=== PATIENT | male | born 1945 | race Caucasian/White ===

== ENCOUNTER 2020-01-20 15:34 | Emergency (ER) | payer MEDICARE, OTHER, SELFPAY ==
[2020-01-20 15:50] VITALS: BP 125/96; PULSE 82; RESP 21; TEMP 37; O2SAT 97
--- NOTE | 2020-01-20 16:07 | ED.WOUNDLAC ---
HPI - Wound/Laceration General Chief Complaint: Wound/Laceration Stated Complaint: right ring finger (old lac) Time Seen by Provider: 01/20/20 16:00 Source: patient Mode of arrival: ambulatory Limitations: no limitations History of Present Illness HPI narrative: Hunter Art is a 74 yo male, with a PMH of [place], diabetes, neuropathy, MRSA, viral encephaloapathy, exposure to angent orange, malaria, who came here to re-evaluate the injury to L 4th finger 1 month ago. He was using a razor blade and has an avulsion injury of the tip of his finger. He is currently on doxycycline lifelong, his nurse companion looked at the injury about 2 weeks ago given different antibiotics so it has been treated. Finger is tender when is pressure is applied to tip Related Data Home Medications Medication Instructions Recorded Confirmed allopurinol 100 mg tablet 200 mg PO DAILY tablet 08/27/19 01/20/20 apixaban 5 mg tablet 5 mg PO BID 08/27/19 01/20/20 carvedilol 6.25 mg tablet 6.25 mg PO Q12H 08/27/19 01/20/20 ferrous fumarate 325 mg (106 mg 325 mg PO DAILY 08/27/19 01/20/20 iron) tablet finasteride 5 mg tablet 5 mg PO DAILY 08/27/19 01/20/20 furosemide 40 mg tablet 40 mg PO DAILY 08/27/19 01/20/20 hydralazine 10 mg tablet 10 mg PO TID 08/27/19 01/20/20 insulin lispro 100 unit/mL 1 sliding scale dose SUB-Q 08/27/19 01/20/20 subcutaneous cartridge USEASDIRECTD montelukast 10 mg tablet 10 mg PO DAILY 08/27/19 01/20/20 nitroglycerin 0.4 mg sublingual 0.4 mg SUBLINGUAL Q5M PRN 08/27/19 01/20/20 tablet spironolactone 25 mg tablet 25 mg PO DAILY 08/27/19 01/20/20 Allergies Allergy/AdvReac Type Severity Reaction Status Date / Time eszopiclone Allergy Unknown Unknown Verified 09/03/19 08:40 oxycodone Allergy Unknown Unknown Verified 09/03/19 08:40 vancomycin Allergy Unknown Unknown Verified 09/03/19 08:40 zolpidem Allergy Unknown Unknown Verified 09/03/19 08:40 [place] Allergy Mild NASAL SX. Uncoded 09/03/19 08:40 [place] Allergy Mild NASAL SX. Uncoded 09/03/19 08:40 Review of Systems Review of Systems: Narrative: CONSTITUTIONAL: Denies fever, chills, sweats. EYES: Denies visual changes, redness, discharge. ENT: Denies rhinorrhea, congestion, sore throat, otalgia. CARDIOVASCULAR: Denies chest pain, palpitations, edema. RESPIRATORY: Denies dyspnea, wheezing, cough GASTROINTESTINAL: Denies abdominal pain, nausea, vomiting, diarrhea. GENITOURINARY: Denies dysuria, hematuria, abnormal discharge SKIN: Denies rash or itching. Partially healed avulsion injury to the left fourth finger NEUROLOGIC: Denies numbness, or focal weakness. PSYCHIATRIC: Denies anxiety or depression. [facility] Family History Family History Sibling No family history of malignant neoplasm No family history of diabetes mellitus Father No family history of cardiovascular disease No family history of diabetes mellitus Mother No family history of hypertension Social History Social History Smoking status: Never smoker Alcohol intake: never Comments At time of signature, I agree with nursing past medical, surgical, social and family history. There is no relevant family history pertinent to the presenting complaint. Exam Narrative: Exam Narrative: GENERAL: This is a well-nourished, well-developed patient, in mild distress. HEAD: normocephalic, atraumatic. EYES: Sclera clear/white. Vision is grossly intact. EARS: External ears normal, Hearing grossly intact. NOSE: External nose normal without nasal discharge, nares without redness, no rhinorrhea. THROAT: Mucous membranes moist, posterior pharynx NECK: Neck supple, non-tender CARDIOVASCULAR: Regular rate and rhythm without murmurs, gallops, or rubs. RESPIRATORY: Clear to auscultation. Breath sounds equal bilaterally. No wheezes, rales, or rhonchi. GASTROINTESTINAL: Abdomen soft, non-tender, SKIN: warm, intact w
== END 2020-01-20 16:23 | disposition home or self-care (01) ==
PROVIDERS: Emergency Provider Nurse Practitioner; PCP Internal Medicine
DX: S61.205A Unspecified open wound of left ring finger without damage to nail, initial encounter (principal); I25.2 Old myocardial infarction; Z86.14 Personal history of Methicillin resistant Staphylococcus aureus infection; E11.40 Type 2 diabetes mellitus with diabetic neuropathy, unspecified; Z79.4 Long term (current) use of insulin; Z79.01 Long term (current) use of anticoagulants; W27.8XXA Contact with other nonpowered hand tool, initial encounter
CPT/HCPCS: 99212; G0463

== ENCOUNTER 2020-07-16 09:38 | Emergency (ER) | payer MEDICARE, OTHER, SELFPAY ==
--- NOTE | 2020-07-16 09:51 | ED.SOB ---
HPI - SOB/Dyspnea General Chief Complaint: Chest Pain Stated Complaint: Chest pain Source: patient and RN notes reviewed Mode of arrival: ambulatory Limitations: no limitations Related Data Home Medications Medication Instructions Recorded Confirmed insulin lispro 100 unit/mL 1 sliding scale dose SUB-Q 08/27/19 07/01/20 subcutaneous cartridge USEASDIRECTD montelukast 10 mg tablet 10 mg PO DAILY 08/27/19 07/01/20 amlodipine 10 mg tablet 10 mg PO DAILY 06/29/20 07/01/20 tacrolimus 0.5 mg capsule 0.5 mg PO ONCE cap 06/29/20 07/01/20 apixaban 5 mg tablet 2.5 mg PO BID tablet 07/01/20 07/01/20 carvedilol 12.5 mg tablet 37.5 mg PO Q12H tablet 07/14/20 tacrolimus 0.5 mg capsule PO 07/14/20 Allergies Allergy/AdvReac Type Severity Reaction Status Date / Time zolpidem Allergy Unknown Hallucinati Verified 07/01/20 09:46 ng Dust Allergy Mild NASAL SX. Uncoded 07/01/20 09:46 [place] Allergy Mild NASAL SX. Uncoded 07/01/20 09:46 Review of Systems Review of Systems: Narrative: CONSTITUTIONAL: Denies malaise, chills, sweats, or fever. EYES: Denies visual changes, redness, or discharge. ENT: Denies rhinorrhea, congestion, sinus pain, otalgia or sore throat. CARDIOVASCULAR: Denies chest pain, palpitations, or edema. RESPIRATORY: Denies cough or dyspnea. GASTROINTESTINAL: Denies abdominal pain, nausea, vomiting, diarrhea, bloody, or mucous stools. GENITOURINARY: Denies dysuria or hematuria. SKIN: Denies rash or itching. MUSCULOSKELETAL: Denies back pain, joint pain, or myalgia. NEUROLOGIC: Denies numbness, weakness, or headache. PSYCHIATRIC: Denies anxiety or depression. All systems reviewed & are unremarkable except as noted in HPI and below PMFSH Past Medical History Medical History (Updated 07/01/20 @ 10:19 by MATTY Molina) Acute kidney injury Amputation of right ring finger DKA (diabetic ketoacidoses) Weakness Family History Family History Sibling No family history of malignant neoplasm No family history of diabetes mellitus Father No family history of cardiovascular disease No family history of diabetes mellitus Mother No family history of hypertension Social History Social History Smoking status: Never smoker Alcohol intake: never Comments At time of signature, agree with nursing past medical, surgical, social and family history. There is no relevant family history pertinent to the presenting complaint Exam Narrative: Exam Narrative: GENERAL: Well-appearing, well-nourished, and in no acute distress. HEAD: Normocephalic, atraumatic. EYES: PERRLA, conjunctivae clear, and EOMI. No nystagmus. ENT: Nares clear, turbinates pink, no rhinorrhea or epistaxis. Mucous membranes moist. TM pearly vieira with sharp light reflex bilaterally; no tragal tenderness. Oropharynx without erythema or lesions. Tonsils not enlarged and without exudate. NECK: Supple. No lymphadenopathy. No jugular venous distension, thyromegaly, or carotid bruits. Carotids were easily palpable bilaterally. CHEST: No respiratory distress. Clear to auscultation. No bony deformities, no asymmetry. Speaks in full sentences. HEART: Regular rate and rhythm. No murmur heard. Normal peripheral pulses. ABDOMEN: Soft, nontender, nondistended, normal active bowel sounds, no palpable masses. EXTREMITIES: Normal range of motion. No edema. Normal strength and sensation. SKIN: Warm, dry, no rash. NEURO: Alert and oriented x3. No focal deficits. Cranial nerves II through XII grossly intact PSYCH: Normal mood and affect Course Course Emergency Course: Patient is aware of diagnosis, understands and agrees to treatment plan. Anticipatory guidance given. Patient agrees to follow-up as directed and is aware of reasons to seek care at the emergency department. Portions of this record may have been created with voice recognition software V
[2020-07-16 09:55] VITALS: BP 121/71; PULSE 74; RESP 20; TEMP 36.5; O2SAT 97
--- NOTE | 2020-07-16 10:22 | PC.NURSE ---
Dr Brink office called. will fax order over for CXR, pt is not needed to be seen unless he prefers to be seen. pt does not.
== END 2020-07-16 10:32 | disposition left against medical advice (07) ==
LOC: EXPBETH 09:52
PROVIDERS: Emergency Provider Nurse Practitioner; PCP Internal Medicine
DX: Z53.21 Procedure and treatment not carried out due to patient leaving prior to being seen by health care provider (principal)
CPT/HCPCS: 99199

== ENCOUNTER → 2020-07-16 10:45 | Outpatient (CLI) | payer MEDICARE, OTHER, SELFPAY ==
--- NOTE | ~2020-07-16 | XR_ITS ---
XR chest 2V DATE: 07/16/2020 11:01 INDICATION: Chest pain, right-sided. Shortness of breath. TECHNIQUE: 2 views COMPARISON: 08/21/2017 portable AP chest FINDINGS: There are pedicle screws and rods of the thoracic spine and a prosthetic spacer device at T 7-8 area. Diffuse osteopenia. Status post sternotomy/coronary artery bypass graft surgery. Borderline or mild cardiomegaly. There is pulmonary vascular redistribution which may indicate mild p ulmonary venous hypertension. Small pleural effusions, right greater than left. Pseudotumor is noted on the right No pulmonary consolidation. No pneumothorax. IMPRESSION: Borderline or mild cardiomegaly Pulmonary vascular redistribution suggesting mild pulmonary venous hypertension. Small pleural effusi ons. Findings suggest mild congestive heart failure Reviewed, dictated and finalized at location A. IMPRESSION: Borderline or mild cardiomegaly Pulmonary vascular redistribution suggesting mild pulmonary venous hypertension . Small pleural effusions. Findings suggest mild congestive heart failure
== END ==
PROVIDERS: PCP Internal Medicine; Visit Provider Internal Medicine
DX: R07.9 Chest pain, unspecified (principal); R91.8 Other nonspecific abnormal finding of lung field
CPT/HCPCS: 71046

== ENCOUNTER 2021-01-26 14:35 | Emergency (ER) | payer MEDICARE, OTHER, SELFPAY | END 2021-01-26 18:07 | disposition home or self-care (01) | LOC: EXPBETH 18:06 | PROVIDERS: Emergency Provider Nurse Practitioner Family | DX: H60.92 Unspecified otitis externa, left ear (principal); J44.9 Chronic obstructive pulmonary disease, unspecified; I25.10 Atherosclerotic heart disease of native coronary artery without angina pectoris | CPT/HCPCS: 99213; G0463 ==

== ENCOUNTER 2021-02-26 13:45 | Emergency (ER) | payer MEDICARE, OTHER, SELFPAY ==
--- NOTE | ~2021-02-26 | XR_ITS ---
EXAMINATION: XR chest 2V EXAM DATE: 02/26/2021 14:11 INDICATION: Chest tightness, history triple bypass and defibrillator. TECHNIQUE: Frontal and lateral projections of the chest obtained and reviewed. Comparison is made to prior examination from 07/16/2020. FINDINGS: Left IJ approach double lumen dialysis catheter. Thoracic Gilbert rods and mid thoracic corpectomy. Sternotomy wires are present without findings to suggest sternal dehiscence. There is ca rdiomegaly. There is pulmonary vascular congestion. Possible mild pulmonary edema. No confluent con solidation, pneumothorax or pleural effusion suspected. IMPRESSION: 1. Cardiomegaly, congestion and possible mild pulmonary edema. Reviewed, dictated and finalized at location A.
--- NOTE | 2021-02-26 13:51 | ED.CHESTPAIN ---
HPI - Chest Pain General Chief Complaint: Chest Pain Stated Complaint: Tightness of Chest Time Seen by Provider: 02/26/21 13:51 Source: patient and RN notes reviewed History of Present Illness HPI narrative: Patient is a 75-year-old male who presents the urgent care with complaints of chest tightness/congestion, fatigue, body aches and shortness of breath when trying to take a deep breaths. Patient states that it started yesterday after he was in dialysis. States that he has had some issues with low blood pressure and is recently been seen at [facility] as well as [facility]. Patient states that he only had 1 unit off of dialysis yesterday. States that he went to the wound clinic today for diabetic ulcer on the foot and did fine . Patient has recently been placed on 2 antibiotics for the wound. Patient denies of any known fevers, cough, URI symptoms. Denies of any nausea or vomiting. 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 Patient states that this pain is not like the pain he had when he had a heart attack . Patient denies of any radiation of the chest congestion/pain. No other acute complaints. No acute distress noted. Patient aware of the plan of care. Some parts of this dictation were generated by voice recognition software and may contain typographical and/or grammatical inaccuracies. Related Data Home Medications Medication Instructions Recorded Confirmed insulin lispro 100 unit/mL 1 sliding scale dose SUB-Q 08/27/19 02/26/21 subcutaneous cartridge USEASDIRECTD montelukast 10 mg tablet 10 mg PO DAILY 08/27/19 02/26/21 tacrolimus 0.5 mg capsule, 0.5 mg PO ONCE cap 06/29/20 02/26/21 immediate-release apixaban 5 mg tablet 2.5 mg PO BID tablet 07/01/20 02/26/21 amoxicillin-pot clavulanate See Rx Instructions .ROUTE .COMPLEX 02/26/21 02/26/21 clindamycin HCl See Rx Instructions .ROUTE .COMPLEX 02/26/21 02/26/21 Allergies Allergy/AdvReac Type Severity Reaction Status Date / Time zolpidem AdvReac Unknown Hallucinati Verified 02/26/21 14:08 ng Dust AdvReac Mild NASAL SX. Uncoded 02/26/21 14:08 [place] AdvReac Mild NASAL SX. Uncoded 02/26/21 14:08 Review of Systems Review of Systems: Narrative: CONSTITUTIONAL: Denies fever, chills, or sweats. Reports of fatigue EYES: Denies visual changes, redness, or discharge. ENT: Denies rhinorrhea, congestion, sore throat, or otalgia. CARDIOVASCULAR: Reports of chest congestion causing pain . Denies chest pain, palpitations, or edema. RESPIRATORY: Reports of difficulty when trying to deep breathe GASTROINTESTINAL: Denies abdominal pain, nausea, vomiting, or diarrhea. GENITOURINARY: Denies dysuria or hematuria. SKIN: Denies rash or itching. MUSCULOSKELETAL: Denies back pain, joint pain. Reports of body aches NEUROLOGIC: Denies headache, numbness, or weakness. All other systems reviewed are negative, except as documented in HPI. [facility] Past Medical History Medical History (Updated 02/26/21 @ 14:27 by KARELY Delvalle) Acute kidney injury Amputation of right ring finger DKA (diabetic ketoacidoses) Weakness Family History Family History Sibling No family history of malignant neoplasm No family history of diabetes mellitus Father No family history of cardiovascular disease No family history of diabetes mellitus Mother No family history of hypertension Social History Social History Smoking status: Never smoker Alcohol intake: never Comments At the time of my signature, I reviewed and agree with the nursing past medical, surgical, social, and family history. There is no relevant family history pertinent to the patient complaint. Exam Narrative: Exam Narrative: GENERAL: This is a well-nourished, well-developed patient, in no apparent distress. HEAD: normocephalic, atraumatic. EYES: PERRL. Sclera clear
[2021-02-26 13:53] VITALS: BP 103/50; PULSE 100; RESP 20; TEMP 36.7; O2SAT 97
--- NOTE | 2021-02-26 14:01 | ECG_ITS ---
Measurements Intervals [place] Rate: 103 P: DE: 0 QRS: 146 QRSD: 124 T: -30 QT: 358 QTc: 469 Interpretive Statements ATRIAL FIBRILLATION WITH RAPID VENTRICULAR RESPONSE RIGHT BUNDLE BRANCH BLOCK LEFT POSTERIOR FASCICULAR BLOCK BASELINE WANDER- V2 ABNORMAL ECG Electronically Signed On 02-26-2021 15:04:47 CDT by Giuliano Yuan D.O.
== END 2021-02-26 14:30 | disposition left against medical advice (07) ==
PROVIDERS: Emergency Provider Nurse Practitioner Family; PCP Internal Medicine
DX: R53.83 Other fatigue (principal); R07.9 Chest pain, unspecified; I45.10 Unspecified right bundle-branch block; I48.91 Unspecified atrial fibrillation; I51.7 Cardiomegaly; E11.10 Type 2 diabetes mellitus with ketoacidosis without coma; Z99.2 Dependence on renal dialysis; I25.2 Old myocardial infarction; Z95.1 Presence of aortocoronary bypass graft
CPT/HCPCS: 71046; 87081; 87804; 87880; 93005; 99213; G0463

== ENCOUNTER 2021-03-17 11:50 | Outpatient (CLI) | payer MEDICARE, OTHER, SELFPAY ==
--- NOTE | ~2021-03-17 | XR_ITS ---
EXAMINATION: [id number] EXAM DATE: 03/17/2021 12:20 INDICATION: Cervicalgia. No known recent injury. TECHNIQUE: Cervical spine frontal, lateral, lateral swimmers, and open-mouth odontoid projections. There is no prior study for comparison. FINDINGS: There is no evidence of acute cervical fracture. The odontoid process is intact. Pre-dens space is normal. Prevertebral soft tissue is normal. There are no soft tissue abnormalities identi fied. Vertebral body and disc heights are well-maintained. The vertebral bodies are aligned. The re is overall moderate cervical arthropathy. Small amount of neural foraminal stenosis at mid cervica l levels. There is carotid calcification, arterial sclerotic disease, with unknown amount of additional atheros clerotic disease. Consider correlating with carotid ultrasound. Thoracic Gilbert rods and a left- sided IJ approach double lumen dialysis catheter. Sternotomy wires. IMPRESSION: 1. Overall moderate cervical arthropathy. 2. Incidental carotid bulb arterial sclerosis; consider correlating with ultrasound. Reviewed, dictated and finalized at location A. IMPRESSION: 1. Overall moderate cervical arthropathy. 2. Incidental carotid bulb arterial sclerosis; consider correlating with ultra sound.
== END 2021-03-17 11:51 | disposition home or self-care (01) ==
LOC: ANHIMG 11:56
PROVIDERS: PCP Internal Medicine; Visit Provider Nurse Practitioner
DX: M54.2 Cervicalgia (principal); I70.90 Unspecified atherosclerosis
CPT/HCPCS: 72040